=== PATIENT | male | born 1955 | race Caucasian/White ===

== ENCOUNTER 2017-01-07 05:18 | Day surgery (SDC) | payer OTHER ==
[~2017-01-07] VITALS: Ht 180.3 cm; Wt 83.9 kg
[2017-01-07 09:19] VITALS: BP 111/70
[2017-01-07 09:54] VITALS: BP 118/66
== END 2017-01-07 10:16 | disposition home or self-care (01) ==
LOC: SDC 05:18
DX: H35.342 Macular cyst, hole, or pseudohole, left eye (principal)
CPT/HCPCS: J0690; J3300